=== PATIENT | male | born 1980 | race Caucasian/White ===

== ENCOUNTER 2019-01-20 16:52 | Observation (INO) ==
[2019-01-20] MEDS ORDERED: Aspirin 81 MG TAB.CHEW PO STA (16:55)
[2019-01-20] MEDS ORDERED: Nitroglycerin 0.4 MG TAB.SUBL SL PRN ×2 (16:55→21:40)
[2019-01-20] MEDS ORDERED: 0.9 % Sodium Chloride 1,000 ML IVC SCH ×2 (17:00→21:40)
[2019-01-20 17:16] LABS: Basophils # 0.1 K/mcL (0.0-0.2); Basophils % 0.6 %; Eosinophils # 0.4 K/mcL (0.0-0.6); Eosinophils % 3.5 %; Hematocrit 46.8 % (37.5-50.1); Hemoglobin 15.4 g/dL (12.9-16.9); Immature Granulocytes % 0.7 % (0-4); Lymphocytes # 2.5 K/mcL (0.6-4.6); Lymphocytes % 21.5 %; Mean Corpuscular HGB Conc 32.9 g/dL (31.6-35.5); Mean Corpuscular Hemoglobin 29.5 pg (28.0-33.3); Mean Corpuscular Volume 89.7 fL (83.0-100.0); Mean Platelet Volume 10.7 fL (9.4-12.4); Monocytes # 0.8 K/mcL (0.0-1.3); Monocytes % 7.2 %; Neutrophils # 7.6 K/mcL (1.6-8.9); Platelet Count 228 K/mcL (140-400); Red Blood Count 5.22 M/mcL (4.19-5.50); Red Cell Distribution Width 14.4 % (11.5-14.5); Segmented Neutrophils % 66.5 %
--- NOTE | 2019-01-20 17:21 | Emergency Department Note ---
Disposition Clinical Impression: Chest pain Disposition: Admitted As Inpatient Referrals: Sierra Ngo CNP [Primary Care Provider] - Chest Pain HPI - General Chief Complaint: ED Chest Pain Stated Complaint: substernal chest pain Time Seen by Provider: 01/20/19 16:52 Source: patient Mode of arrival: ambulatory Limitations: no limitations Vital Signs Reviewed: Yes Nursing Notes Reviewed: Yes - Related Data Previous Rx's Medication Instructions Recorded Oseltamivir [Tamiflu] 75 mg PO BID #10 capsule 11/26/17 Allergies Allergy/AdvReac Type Severity Reaction Status Date / Time diphenhydramine Allergy Swelling Verified 06/08/16 19:42 of Lip/Tongue/Throat Chest Pain PMH - Past Medical History Medical history: Reports: hypertension, other (Morbid obesity). Denies: asthma, COPD, coronary artery disease, DVT, diabetes, hyperlipidemia, pulmonary embolus Surgical history: Reports: other (Clean cardiac catheterization in 2014) Psychiatric history: Reports: no psych history - Social History Smoking Status: Never smoker Alcohol use: Reports: none Drug use: Reports: none Chest Pain - [facility] Narrative Medical decision making narrative: I reviewed the patient's medication list I discussed case with Dr. Retana who is graciously accepted admission to the hospital - Lab Data Lab results reviewed: Yes I reviewed the patient's lab results. - Radiology Data Radiology results reviewed: Yes I reviewed the patient's radiology results. - EKG Data EKG attestation: Yes I reviewed and interpreted this EKG. EKG results narrative: EKG shows a sinus rhythm with a first-degree AV block. Rate is 86 bpm. UT interval 213 ms QRS duration 101 ms QT and QTC intervals 369 and 442 ms rectally R axis of 18 degrees there is no acute ST elevation appreciated. Relatively poor R-wave progression noted
[2019-01-20 17:23] LABS: INR 1.1; Prothrombin Time 12.8 Seconds (9.4-12.1)
[2019-01-20 17:26] LABS: Activated Partial Thrombo Time 37.1 Seconds (26.0-36.0)
[2019-01-20 17:34] LABS: Troponin I < 0.03 ng/mL (< 0.04)
[2019-01-20 17:35] LABS: Alanine Aminotransferase 17 Units/L (7-52); Albumin 4.4 g/dL (3.5-5.7); Albumin/Globulin Ratio 1.4 (1.1-2.2); Alkaline Phosphatase 65 Units/L (34-104); Aspartate Amino Transferase 11 Units/L (13-39); BUN/Creatinine Ratio 13 (6-26); Blood Urea Nitrogen 10 mg/dL (6-20); Calcium 9.3 mg/dL (8.6-10.3); Carbon Dioxide 25 mEq/L (23-29); Chloride 106 mEq/L (98-107); Globulin 3.1 g/dL (2.4-3.5); Glucose 104 mg/dL (70-105); Osmolality,Calculated 287 (280-300); Sodium 139 mEq/L (136-145); Total Protein 7.5 g/dL (6.4-8.9); eGFR For Non-African Americans > 60 (> 60)
[2019-01-20] MEDS ORDERED: Naloxone 0.4 MG/ML INJ IVP PRN (21:40)
[2019-01-21 07:29] LABS: Basophils # 0.1 K/mcL (0.0-0.2); Basophils % 0.6 %; Eosinophils # 0.4 K/mcL (0.0-0.6); Eosinophils % 3.9 %; Hematocrit 44.6 % (37.5-50.1); Hemoglobin 14.8 g/dL (12.9-16.9); Immature Granulocytes % 0.7 % (0-4); Lymphocytes # 2.2 K/mcL (0.6-4.6); Lymphocytes % 22.3 %; Mean Corpuscular HGB Conc 33.2 g/dL (31.6-35.5); Mean Corpuscular Volume 90.5 fL (83.0-100.0); Mean Platelet Volume 10.8 fL (9.4-12.4); Monocytes # 0.7 K/mcL (0.0-1.3); Monocytes % 7.4 %; Neutrophils # 6.5 K/mcL (1.6-8.9); Platelet Count 209 K/mcL (140-400); Red Blood Count 4.93 M/mcL (4.19-5.50); Red Cell Distribution Width 14.5 % (11.5-14.5); Segmented Neutrophils % 65.1 %
[2019-01-21 09:17] LABS: BUN/Creatinine Ratio 14 (6-26); Blood Urea Nitrogen 11 mg/dL (6-20); Calcium 8.9 mg/dL (8.6-10.3); Carbon Dioxide 26 mEq/L (23-29); Chloride 108 mEq/L (98-107); Glucose 100 mg/dL (70-105); Osmolality,Calculated 289 (280-300); Potassium 4.1 mEq/L (3.5-5.1); Sodium 140 mEq/L (136-145); eGFR For Non-African Americans > 60 (> 60)
--- NOTE | 2019-01-21 10:45 | Internal Med History&Physical ---
Date of Encounter: 01/21/19 Time of Encounter: 10:10 Assessment and Plan (1) Chest pain Current visit: Yes Status: Acute Doubt myocardial ischemia from history and physical. Suspect chest wall origin. Repeat cardiac enzymes were ordered through emergency room. Qualifiers: Chest pain type: precordial pain Qualified Code(s): R07.2 - Precordial pain Internal Medicine - H&P: HPI Chief complaint: Chest discomfort Admitted From: Emergency Dept Plans for Post Hospital Care: Home History of present illness: Mr. Alfaro is a 38 year old male who came to emergency room stating he had onset of chest discomfort the morning of January 19. He describes it as a "stabbing" discomfort in his left chest that seemed to radiate to his left arm. He also had a sensation of heartburn. He took Rolaids without relief. The pain resolved and returned repeatedly and was unrelated to exercise, eating, or position. He came to emergency room and was evaluated and was admitted to [facility] floor for ongoing care needs. He states the pain has now resolved and he feels back to his baseline and wishes to be discharged home. Cardiovascular history is negative for hypertension heart failure angina DVT or pulmonary embolus. He reports a heart cath at [facility] approximately 2015 showed no significant stenosis requiring further intervention. Past Med Surg Social Fam HX - Past Medical History Medical history: hypertension, myocardial infarction Additional medical history: MA 1 year ago per pt statement Psychiatric history: no psych history - Past Surgical History Surgical History: other (Clean cardiac catheterization in 2014) Additional surgical history: Heart cath December 2014-CLEAN CATH - Social History Smoking Status: Current every day smoker Smokeless Tobacco Status: No Alcohol use: none Drug use: none - Family History Father Name: erika Alfaro Age: 66 Living Status: Still Living Hx Family Cardiac Disorders: Yes (heart transplant 2013) Hx Family HEENT Disorders: Yes (factor 5 leiden) Mother Name: julissa Alfaro Age: 62 Hx Family Endocrine Disorder: Yes (diabetes) Internal Medicine - H&P: Meds Oseltamivir [Tamiflu] 75 mg PO BID #10 capsule 11/26/17 [Rx] Allergy/AdvReac Type Severity Reaction Status Date / Time diphenhydramine Allergy Swelling Verified 06/08/16 19:42 of Lip/Tongue/Throat All Systems PM: A 10-system review of systems was performed and is negative for pertinent findings except as documented above in the HPI. Review of systems: Gen.: He states his weight has been stable for several months Cardiovascular: As per history of present illness Respiratory: He has smoked since age 29 never exceeding one half pack per day. He denies chronic lung disease. GI: He denies disorders of his liver gallbladder or exocrine pancreas : He denies hematuria dysuria or kidney stones Neurologic: He denies large distribution strokes or seizures. Endocrine: He denies diabetes thyroid disease or hyperlipidemia Hematology/oncology: He denies blood disorders cancers or anemia Psychiatric: He denies anxiety depression or other mental health issues. [place] skeletal: He denies arthritis gout or other bone joint or muscle disorders. - Constitutional Vitals: Temp Pulse Resp BP Pulse Ox 97.5 F L 80 17 112/81 95 01/21/19 07:21 01/21/19 07:21 01/21/19 07:21 01/21/19 07:21 01/21/19 07:21 Exam: Gen.: He is well-developed overweight male lying in bed who appears in no acute distress at present time HEENT: Head is atraumatic and normocephalic. Eyes: EOMI. There is no scleral icterus. Mouth: Mucosa is moist. Neck: Supple and nontender. There is no thyromegaly or adenopathy noted. Heart: Regular without murmurs gallops or ectopics Chest: He is tender to compression of his left chest wall stating "that is the pain". Lungs: No wheezes or crackles are heard. Abdomen: Soft and nontender. No masses or guarding are noted. Extremities: There is no cyanosis edema or clubbing noted. Dorsalis pedis and posttibial pulses are trace to 1+ palpable bilaterally. Neurologic: Mental status: He is talkative and a good historian. Cranial nerves: Smile is symmetric. Forehead wrinkles bilaterally. Tongue protrudes midline. EOMI. Motor: There is no pronator drift. Cerebellar: Finger to nose is intact bilaterally. Skin: Warm and dry Internal Med - H&P Results - Labs CBC & Chem 7: 01/21/19 07:03 01/21/19 07:03 Labs: Short CBC 01/20/19 01/21/19 Range/Units 17:07 07:03 WBC 11.4 H 9.9 (4.3-11.1) K/mcL Hgb 15.4 14.8 (12.9-16.9) g/dL Hct 46.8 44.6 (37.5-50.1) % Plt Count 228 209 (140-400) K/mcL Neutrophils # 7.6 6.5 (1.6-8.9) K/mcL BMP 01/20/19 01/21/19 17:07 07:03 Sodium 139 140 Potassium 4.0 4.1 Chloride 106 108 H Carbon Dioxide 25 26 BUN 10 11 Creatinine 0.79 0.80 Glucose 104 100 Calcium 9.3 8.9 Cardiac Enzymes 01/20/19 01/20/19 01/21/19 Range/Units 17:07 18:58 01:03 Troponin I < 0.03 < 0.03 < 0.03 (< 0.04) ng/mL 01/21/19 Range/Units 07:03 Troponin I < 0.03 (< 0.04) ng/mL Liver Function 01/20/19 Range/Units 17:07 Total Bilirubin 1.0 (0.3-1.0) mg/dL AST 11 L (13-39) Units/L ALT 17 (7-52) Units/L Alkaline Phosphatase 65 (34-104) Units/L Albumin 4.4 (3.5-5.7) g/dL - Impressions ITS Impressions Chest X-Ray 01/20/19 16:55 IMPRESSION: Bibasilar atelectasis. Otherwise, no acute cardiopulmonary process. D/ / 01/20/2019 17:54:08 Jude Judge MD / frank Interpreting Provider: Jude Judge MD
--- NOTE | 2019-01-21 10:53 | Discharge Summary ---
Date of Encounter: 01/21/19 Time of Encounter: 10:10 - Discharge Diagnosis (1) Chest pain Priority: Primary Status: Acute Qualifiers: Chest pain type: precordial pain Qualified Code(s): R07.2 - Precordial pain Hospital course: Mr. Alfaro is a 38 year old male who came to emergency room stating he had onset of chest discomfort the morning of January 19. He describes it as a "stabbing" discomfort in his left chest that seemed to radiate to his left arm. He also had a sensation of heartburn. He took Rolaids without relief. The pain resolved and returned repeatedly and was unrelated to exercise, eating, or position. He came to emergency room and was evaluated and was admitted to [facility] for ongoing care needs. Initial orders were written by the emergency room physician. I saw him on January 21 and performed a history physical and discharge. Repeat cardiac enzymes showed no evidence of myocardial damage. When I saw him I felt the pain was likely to be chest wall origin. I recommended he try OTC NSAIDs for approximately 2 days and see if pain remained resolved. I encouraged him to become a nonsmoker. He will be discharged home and follow with his PCP Sierra Ngo CNP within 1 week. - Time Spent with Patient Total time spent providing and/or coordinating discharge services: - Discharge Medications Prescriptions: Continue Oseltamivir [Tamiflu] 75 mg PO BID #10 capsule Home Medications: Oseltamivir [Tamiflu] 75 mg PO BID #10 capsule 11/26/17 [Rx] Allergies/Adverse Reactions: Allergy/AdvReac Type Severity Reaction Status Date / Time diphenhydramine Allergy Swelling Verified 06/08/16 19:42 of Lip/Tongue/Throat Date of admission: 01/20/19 19:31 Primary care physician: Sierra Ngo - Constitutional Vitals: Temp Pulse Resp BP Pulse Ox 97.5 F L 80 17 112/81 95 01/21/19 07:21 01/21/19 07:21 01/21/19 07:21 01/21/19 07:21 01/21/19 07:21 - Patient Status Disposition: Home, Self-Care - Discharge Instructions Follow Up With: Sierra Ngo CNP [Primary Care Provider] - 1 week - Diet and Activity Activity: resume usual activities as tolerated Diet: advance to your usual diet
[2019-01-21 11:00] VITALS: BP 132/72
--- NOTE | 2019-01-24 09:51 | Electrocardiograph Report ---
[place] [id number] Test Date: 2019-01-20 Pat Name: Asad Alfaro Department: EDP-11 Room: [facility] Gender: M Skeiner: : 1980 Requested By: Faustino Call Order Number: [id number] Reading MD: Pavel Pacheco Measurements Intervals [place] Rate: 86 P: 32 IL: 213 QRS: 18 QRSD: 101 T: 59 QT: 369 QTc: 442 Interpretive Statements Sinus rhythm Prolonged [place] interval Abnormal R-wave progression, early transition Electronically Signed On 01-24-2019 9:49:50 EDT by Pavel Pacheco
== END 2019-01-21 11:17 | disposition home or self-care (01) ==
LOC: EMEROOPIK 16:52 → INPPIK 16:52
PROVIDERS: ADMIT Internal Medicine; ATTEND Internal Medicine